=== PATIENT | male | born 1970 | race Caucasian/White ===

== ENCOUNTER → 2021-07-21 07:59 | Day surgery (SDC) | payer BC, SELFPAY ==
[2021-07-16 12:33] VITALS: BMI 28.5
--- NOTE | 2021-07-21 08:20 | ANES.PREANE2 ---
Pre-Anesthetic Assessment Pre-Anesthetic Assessment: Height/Weight: Height 1.8 m Weight 92.986 kg Preop Diagnosis: Screening colonoscopy Proposed Procedure: Operation Date: 07/21/21 09:15 Proposed Procedures p Colonoscopy 03267 Z12.11(Not Applicable) - Fab Baires MD Was Beta Avery taken within 24 hours: N/A Was Clonidine taken within 24 hours: N/A Social: Social History: Alcohol and Tobacco Comment: Jennyfer use Exam: Pre-Anes Outpt Exam: alert, oriented x 3 and regular rate & rhythm Airway: Submandibular: WNL Cervical ROM: WNL MP: 2 Dentition: False History/ROS: No significant history except as noted Anesthetic Plan: ASA status: 2 Anesthesia: MAC Risk of > 500 ml blood loss (7ml/kg in children): No Data Anesthesia Cardiac Studies: No Data to Display
--- NOTE | 2021-07-21 08:33 | PC.NURSE ---
pt states he did not take a prep . states he never got one and a nurse told him that he didn't need to unless he was constipated. dr. hill notified. pt to be rescheduled.
--- NOTE | 2021-07-21 15:26 | ANE.PACU2 ---
Inpatient post-anesthesia follow up: Airway intact: Yes Vital signs: Temperature Pulse Rate Respiratory Rate Blood Pressure Pulse Oximetry Oxygen Delivery Me thod Oxygen Flow Rate Fraction of Inspir ed Oxygen Hydration adequate: Yes Nausea and vomiting: No Pain level: 1 Mental status: Baseline
== END ==
PROVIDERS: PCP Family Medicine; Visit Provider Surgery
PROC: 0DJD8ZZ Inspection of Lower Intestinal Tract, Via Natural or Artificial Opening Endoscopic (ICD-10-PCS; CPT 45378; principal; 2021-07-21 09:15)
DX: Z12.11 Encounter for screening for malignant neoplasm of colon (principal); Z53.9 Procedure and treatment not carried out, unspecified reason

== ENCOUNTER 2021-12-23 08:19 | Emergency (ER) | payer BC, SELFPAY ==
[2021-12-23 08:27] VITALS: BP 174/114; PULSE 76; RESP 97; TEMP 36.2; O2SAT 96; BMI 29.9
--- NOTE | 2021-12-23 08:41 | CT_ITS ---
WS: [id number] CT HEAD NONCONTRAST HISTORY: R arm weakness/numbness TECHNIQUE: Contiguous axial imaging performed through the brain in 2.5 mm imaging. Bone and soft tiss ue windows. Sagittal and coronal reformats reviewed. All CT scans at [facility] use at least one of these dose optimization techniques: automated exposure control; mA and/or kV adjustment per pa tient size (includes targeted exams where dose is matched to clinical indication); or iterative recon struction. DLP: 987.08 mGy.cm COMPARISON: None available. No acute intracranial hemorrhage, midline shift or mass effect. No atrophy or prior infarcts or herniation. Ventricles: Normal size with no hydrocephalus. Paranasal sinuses: Near complete opacification of the LEFT sphenoid sinus. Otherwise sinuses are basilia r. Mastoid air cells: Well pneumatized. Calvarium and scalp: Skull is intact with no soft tissue edema or swelling. CT/CT head wo con* [id number] IMPRESSION: 1. No acute intracranial hemorrhage or edema. 2. LEFT sphenoid sinus disease.
--- NOTE | 2021-12-23 08:41 | ECG_ITS ---
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 Measurements Intervals [place] Rate: 65 P: 3 ND: 179 QRS: -15 QRSD: 102 T: 12 QT: 399 QTc: 418 Interpretive Statements SINUS RHYTHM Compared to ECG 02/21/2016 17:33:29 No significant changes Electronically Signed On 12-24-2021 5:59:58 [employer] by Anuja Nolasco M.D. [email or web address]
[2021-12-23 09:00] LABS: Basophils # 0.1 10^3/uL (0.0-0.1); Basophils % 0.7 %; Eosinophils # 0.1 10^3/uL (0.0-0.8); Eosinophils % 1.7 %; Hematocrit 46.6 % (42.0-52.0); Hemoglobin 15.9 g/dL (11.7-16.6); Lymphocytes # 1.4 10^3/uL (0.8-4.8); Lymphocytes % 19.5 %; Mean Corpuscular HGB Conc 34.1 g/dL (30.0-36.0); Mean Corpuscular Hemoglobin 31.9 pg (28.0-34.0); Mean Corpuscular Volume 93.4 fl (80-94); Mean Platelet Volume 10.4 fL (7.4-10.4); Monocytes # 0.8 10^3/uL (0.2-0.9); Monocytes % 11.3 %; Neutrophils # 4.71 10^3/uL (1.8-7.7); Neutrophils % 66.4 %; Nucleated Red Blood Cells % 0 %; Platelet Count 258 10^3/cmm (130-400); Red Blood Count 4.99 10^6/uL (4.1-5.3); Red Cell Distribution Width 12.3 % (12.1-15.1); White Blood Count 7.1 10^3/uL (4.0-10.0)
--- NOTE | 2021-12-23 09:12 | W.ED.ANXIETY ---
HPI - Anxiety General: Chief Complaint: Anxiety Stated Complaint: Pressure R side of head R arm feel numb Time Seen by Provider: 12/23/21 08:29 Source: patient Mode of arrival: ambulatory Limitations: no limitations History of Present Illness: 51-year-old male presents emergency room with complaints right-sided frontal headache discomfort in his right arm is not numb weak sensation. He also has noticed his blood pressures been high. He has been having some relationship issues with his they are currently and may be heading towards divorce. He admits to having been drinking heavily for the last 2 years nearly a bottle of wine per night. Last 2 days he has not been drinking any has had onset of the symptoms including increasing anxiety since stopping the drinking. In addition to that he is stopped smoking tobacco and marijuana. MD complaint: anxiety Onset (ago): day(s) (2) Symptoms: extremity numbness/tingling and other (Right-sided headache) Severity: mild Quality: constant Place: home Provoking factors: emotional stress and other (Sudden abstinence from alcohol, nicotine, marijuana) Relieving factors: nothing Exacerbating factors: other (Alcohol nicotine marijuana abstinence) Associated symptoms: Reports anorexia, headache(s), malaise and weakness; Deny chest pain, chills, confusion, diaphoresis, fever(s), nausea, palpitations, short of breath, syncope or vomiting Review of Systems Const: Reports: malaise; Denies: fever(s), chills or diaphoresis ENMT: Denies: throat pain, ear or mastoid pain, nasal discharge or nasal congestion Card: Denies: chest pain, palpitations or syncope Resp: Denies: dyspnea, productive cough or non-productive cough GI: Denies: nausea or vomiting : Denies: flank pain, dysuria, urinary frequency or urinary urgency Skin/Breast: Denies: rash or pruritus Neuro: Reports: headache(s); Denies: confusion Psych: Reports: anxiety, depression, sleeping less, hopelessness, loss of interest and difficulty concentrating; Denies: visual hallucinations, auditory hallucinations, tactile hallucinations, suicidal ideation or homicidal ideation [facility] ED PFSH: Medical History Alcohol abuse Anxiety Depression Surgical History No significant past surgical history Social History Smoking and tobacco status: current every day smoker cigarettes Packs smoked per day: 1 Years cigarettes smoked: 30 Alcohol intake: current Alcohol intake frequency: 3 or more drinks per day Alcohol type: wine Physical Exam Const: COMMON NORMALS: no acute distress GENERAL APPEARANCE: cooperative and comfortable ORIENTATION/CONSCIOUSNESS: Yes awake, Yes oriented to person, Yes oriented to place and Yes oriented to time HENMT: COMMON NORMALS: normocephalic, atraumatic and hearing grossly normal bilaterally HEAD & SCALP: normocephalic and atraumatic Neck/C-Spine: COMMON NORMALS: no JVD Resp: COMMON NORMALS: normal respiratory effort, No retractions, No use of accessory muscles and clear to auscultation bilaterally AUSCULTATION: clear to auscultation bilaterally Cardio: COMMON NORMALS: no JVD, regular rate, regular rhythm and No murmurs present (Cardio) RATE: regular rate RHYTHM: regular rhythm GI: COMMON NORMALS: Soft to palpation and No hepatosplenomegaly present AUSCULTATION: Yes normoactive bowel sounds PALPATION: Yes Soft to palpation, No Tenderness to palpation present (GI), No Guarding due to palpation present (GI) and Yes No hepatosplenomegaly present Extremity: COMMON NORMALS: normal to inspection, capillary refill normal, no clubbing, cyanosis or edema, no calf tenderness and no pedal edema Neuro: SENSORIUM/ORIENTATION: Yes oriented to person, Yes oriented to place and Yes oriented to time Skin: COMMON NORMALS: no rashes or lesions noted GENERAL SKIN EXAM: no rashes or lesions noted Course Vital Signs: Vital signs: Vital Signs Temperature 97.1 F L 12/23/21 08:27 Pulse Rate 72 12/23/21 09:41 Respiratory Rate 18 12/23/21 09:41 Blood Pressure 163/101 12/23/21 09:41 Pulse Oximetry 93 12/23/21 09:41 MDM - Anxiety Medical Decision Making Acute anxiety reaction in addition added complicated by alcohol abuse. Discussed with the patient. Will encourage him to follow-up with [facility] and/or alcoholics anonymous or turning leaf. Given Ativan to use as needed. Medical Records I reviewed the patient's medical records. Lab Data I reviewed the patient's lab results. : 12/23/21 08:40 12/23/21 08:[address] 12/23/21 08:41 IMPRESSION: 1. No acute intracranial hemorrhage or edema. 2. LEFT sphenoid sinus disease. Laboratory Results WBC 7.1 10^3/uL (4.0-10.0) 12/23/21 08:40 RBC 4.99 10^6/uL (4.1-5.3) 12/23/21 08:40 Hgb 15.9 g/dL (11.7-16.6) 12/23/21 08:40 Hct 46.6 % (42.0-52.0) 12/23/21 08:40 MCV 93.4 fl (80-94) 12/23/21 08:40 MCH 31.9 pg (28.0-34.0) 12/23/21 08:40 MCHC 34.1 g/dL (30.0-36.0) 12/23/21 08:40 RDW 12.3 % (12.1-15.1) 12/23/21 08:40 Plt Count 258 10^3/cmm (130-400) 12/23/21 08:40 MPV 10.4 fL (7.4-10.4) 12/23/21 08:40 Neut % (Auto) 66.4 % 12/23/21 08:40 Lymph % (Auto) 19.5 % 12/23/21 08:40 Louisa % (Auto) 11.3 % 12/23/21 08:40 Eos % (Auto) 1.7 % 12/23/21 08:40 Baso % (Auto) 0.7 % 12/23/21 08:40 Neut # (Auto) 4.71 10^3/uL (1.8-7.7) 12/23/21 08:40 Lymph # (Auto) 1.4 10^3/uL (0.8-4.8) 12/23/21 08:40 Louisa # (Auto) 0.8 10^3/uL (0.2-0.9) 12/23/21 08:40 Eos # (Auto) 0.1 10^3/uL (0.0-0.8) 12/23/21 08:40 Baso # (Auto) 0.1 10^3/uL (0.0-0.1) 12/23/21 08:40 Nucleated RBC % (auto) 0 % 12/23/21 08:40 Nucleated RBCs # 0.0 /100WBC 12/23/21 08:40 Sodium 134 mmol/L (136-145) L 12/23/21 08:40 Potassium 4.6 mmol/L (3.5-5.1) 12/23/21 08:40 Chloride 99 mmol/L (98-107) 12/23/21 08:40 Carbon Dioxide 24 mmol/L (22-29) 12/23/21 08:40 Anion Gap 15.6 (5-19) 12/23/21 08:40 BUN 12 mg/dL (6-20) 12/23/21 08:40 Creatinine 0.7 mg/dL (0.7-1.2) 12/23/21 08:40 GFR Calculation 118.4 mL/min (90-130) 12/23/21 08:40 Glucose 101 mg/dL (65-115) 12/23/21 08:40 Calculated Osmolality 278 mOsm/kg (285-295) L 12/23/21 08:40 Calcium 10.1 mg/dL (8.5-10.5) 12/23/21 08:40 Total Bilirubin 0.4 mg/dL (0.15-1.2) 12/23/21 08:40 AST 17 U/L (0-40) 12/23/21 08:40 ALT 19 U/L (0-41) 12/23/21 08:40 Alkaline Phosphatase 73 IU/L (40-130) 12/23/21 08:40 Total Protein 7.2 g/dL (6.6-8.7) 12/23/21 08:40 Albumin 5.0 g/dL (3.5-5.2) 12/23/21 08:40 Globulin 2.2 g/dL (1.3-4.6) 12/23/21 08:40 Discharge Plan Discharge Patient Disposition: Home Clinical Impression: Anxiety Condition: Stable Prescriptions: New Ativan 2 mg tablet 2 mg PO Q6H PRN (Reason: anxiety) Qty: 14 0RF No Action ibuprofen 200 mg Tablet 400 mg PO Q6H PRN (Reason: Pain) 0RF melatonin 5 mg Tablet 5 - 10 mg PO BEDTIME PRN (Reason: Sleep) 0RF Discharge Orders: Discharge ED (Routine); Ordered 12/23/21 Ordered By: Satinder Abraham Referrals: Reese Lowe MD [Primary Care Provider] - Discharge Diet: Usual diet Discharge Activity: Increase activity as tolerated Patient Instructions: Abuse of Alcohol (ED), Anxiety (ED), Opioid Safety Activity Restrictions/Additional Instructions: Recommend abstinence from alcohol. Suggest contacting facilities such as [facility] ([phone]) Coding Level of Care Code ED Proof Reader for Chg Fwd Exam Comprehensive NIH stroke score NIHSS Level Of Consciousness - 1a: 0 Level Of Consciousness Questions - 1b: Both Correct Level Of Consciousness Commands - 1c: Both Correct Best Gaze - 2: Normal Visual Ortiz - 3: No Visual Loss Facial Palsy - 4: Normal Motor Arm Right - 5: No Drift Motor Arm Left - 5: No Drift Motor Leg Right - 6: No Drift Motor Leg Left - 6: No Drift Limb Ataxia - 7: Absent Sensory - 8: Normal Best Language - 9: No Aphasia Dysarthia - 10: Normal Extinction And Inattention - 11: 0 Score Total Score: 0
[2021-12-23 09:23] LABS: Alanine Aminotransferase 19 U/L (0-41); Alkaline Phosphatase 73 IU/L (40-130); Anion Gap 15.6 (5-19); Aspartate Amino Transferase 17 U/L (0-40); Blood Urea Nitrogen 12 mg/dL (6-20); Calcium 10.1 mg/dL (8.5-10.5); Carbon Dioxide 24 mmol/L (22-29); Chloride 99 mmol/L (98-107); Globulin 2.2 g/dL (1.3-4.6); Glomerular Filtration Rate 118.4 mL/min (90-130); Glucose 101 mg/dL (65-115); Osmolality Calculated 278 mOsm/kg (285-295); Potassium 4.6 mmol/L (3.5-5.1); Sodium 134 mmol/L (136-145); Total Bilirubin 0.4 mg/dL (0.15-1.2); Total Protein 7.2 g/dL (6.6-8.7)
[2021-12-23] MEDS: ketorolac 30 mg/mL INJ IVP (09:33)
[2021-12-23] MEDS: LORazepam 2 mg/mL INJ 1 mL IVP (09:33)
[2021-12-23] MEDS: amlodipine 10 mg Tablet PO (09:33)
[2021-12-23] MEDS: enalaprilat 1.25 mg/mL Inj IVP (09:33)
[2021-12-23 09:41] VITALS: BP 163/101; PULSE 72; RESP 18; O2SAT 93
--- NOTE | 2021-12-23 10:03 | PC.PHAR ---
PT STATES HE TAKES NO RX MEDICATIONS
== END 2021-12-23 11:16 | disposition home or self-care (01) ==
PROVIDERS: Emergency Provider Family Medicine; PCP Family Medicine
DX: F41.9 Anxiety disorder, unspecified (principal); F17.210 Nicotine dependence, cigarettes, uncomplicated
CPT/HCPCS: 70450; 80053; 85025; 93005; 96374; 96375; 99284; J1885; J2060; J3490

== ENCOUNTER 2022-01-02 09:57 | Emergency (ER) | payer BC, SELFPAY ==
[2022-01-02 10:13] VITALS: BP 168/116; PULSE 90; RESP 16; TEMP 36.4; O2SAT 96; BMI 29.9
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
[2022-01-02 10:54] VITALS: BP 154/96; PULSE 88; RESP 16; TEMP 36.8; O2SAT 99
[2022-01-02 10:57] VITALS: BP 164/99; PULSE 66; RESP 18; TEMP 36.8; O2SAT 99
== END 2022-01-02 11:01 | disposition home or self-care (01) ==
PROVIDERS: Emergency Provider Physician Assistant; PCP Family Medicine
DX: F41.9 Anxiety disorder, unspecified (principal); Z79.82 Long term (current) use of aspirin; F17.210 Nicotine dependence, cigarettes, uncomplicated
CPT/HCPCS: 99283

== ENCOUNTER 2023-05-06 07:00 | Emergency (ER) | payer MEDICAID, SELFPAY ==
[2023-05-06 07:11] VITALS: BP 138/100; PULSE 77; RESP 15; TEMP 36.7; O2SAT 97
--- NOTE | 2023-05-06 07:19 | ED_ITS ---
HPI - Skin/Abscess/Foreign Bdy General: Chief complaint: Skin/Abscess/Foreign Body Stated complaint: due possible spider bites Time Seen by Provider: 05/06/23 07:04 History of Present Illness: Mr. Bailey is a 52-year-old gentleman without significant past medical history presented the emergency department for skin lesions with possible spider bites. He notes walking through a spiderweb yesterday however initially not noticing anything. He subsequently developed a few hours later number of itching bites on his face and neck as well as head. He thought it was a spider bite and has had associated fatigue, myalgias, chills, fevers. Intensity symptoms is moderate. Course has persisted. Has tried calamine lotion with mild relief. No other specific changes in health, exacerbating, or alleviating factors identified. Onset (ago): hour(s) Location: head and neck Severity: moderate Quality: pruritic Associated symptoms: Reports chills, fever(s) and other Review of Systems General: Reports: 10 or more systems reviewed and unremarkable except in HPI and below Const: Reports: fever(s) and chills PFSH ED PFSH: Medical History Alcohol abuse Anxiety Depression Surgical History No significant past surgical history Social History Smoking and tobacco status: current every day smoker cigarettes Packs smoked per day: 1 Years cigarettes smoked: 30 Alcohol intake: current Alcohol intake frequency: 3 or more drinks per day Alcohol type: wine Substance/Drug Use: current Substance/Drug use frequency: daily Physical Exam Const: COMMON NORMALS: alert GENERAL APPEARANCE: cooperative and well developed HENMT: COMMON NORMALS: normocephalic and atraumatic HEAD & SCALP: normocephalic and atraumatic Eye: COMMON NORMALS: conjunctivae normal CONJUNCTIVA: Yes conjunctivae normal SCLERA: sclerae normal Neck/C-Spine: COMMON NORMALS: supple GENERAL: Yes trachea midline Resp: COMMON NORMALS: normal respiratory effort EFFORT & INSPECTION: Yes able to speak in complete sentences Cardio: COMMON NORMALS: regular rate and regular rhythm RATE: regular rate RHYTHM: regular rhythm GI: COMMON NORMALS: Soft to palpation PALPATION: Yes Soft to palpation and No Tenderness to palpation present (GI) Extremity: GENERAL: Yes normal exam except as noted and No edema Neuro: COMMON NORMALS: moves all extremities SENSORIUM/ORIENTATION: Yes alert and No Orientation impaired Skin: NARRATIVE SKIN EXAM: Scattered maculopapular rash along the face and hairline. No evidence of facial edema around the oropharynx or mouth. There is a more raised wheel-like lesion on the right neck. Course Vital Signs: Vital signs: Vital Signs Temperature 98.1 F 05/06/23 07:11 Pulse Rate 70 05/06/23 08:52 Respiratory Rate 15 05/06/23 07:11 Blood Pressure 153/109 05/06/23 08:52 Pulse Oximetry 99 05/06/23 08:52 Oxygen Delivery Me thod Room Air 05/06/23 07:11 MDM - Skin/Abscess/Foreign Bdy Medicial Decision Making 52-year-old gentleman presented to the emergency department with generalized illness and concern for spider bites. Patient is markedly although nontoxic in appearance. Lesions non vesicular and are not consistent with spider bite and may be more likely small insect bite. No evidence of superimposed infection. No significant hematologic abnormality. Metabolic panel with minimal dehydration. COVID-positive which likely better explain symptoms. No indication for imaging. Patient improved with treatment. The results of ED evaluation were discussed with the patient including prescriptions and/or symptomatic cares (if applicable) including appropriate and responsible use, followup plan, and return precautions. The patient verbalized understanding and felt safe for discharge. Medical Records I reviewed the patient's medical records. Lab Data I reviewed the patient's lab results. 05/06/23 07:30 05/06/23 07:30 Laboratory Results WBC 6.0 10^3/uL (4.0-10.0) 05/06/23 07:30 RBC 4.74 10^6/uL (4.1-5.3) 05/06/23 07:30 Hgb 14.8 g/dL (11.7-16.6) 05/06/23 07:30 Hct 43.8 % (42.0-52.0) 05/06/23 07:30 MCV 92.4 fl (80-94) 05/06/23 07:30 MCH 31.2 pg (28.0-34.0) 05/06/23 07:30 MCHC 33.8 g/dL (30.0-36.0) 05/06/23 07:30 RDW 12.1 % (12.1-15.1) 05/06/23 07:30 Plt Count 220 10^3/cmm (130-400) 05/06/23 07:30 MPV 10.7 fL (7.4-10.4) H 05/06/23 07:30 Neut % (Auto) 73.9 % 05/06/23 07:30 Lymph % (Auto) 11.0 % 05/06/23 07:30 [place] % (Auto) 12.8 % 05/06/23 07:30 Eos % (Auto) 1.2 % 05/06/23 07:30 Baso % (Auto) 0.8 % 05/06/23 07:30 Neut # (Auto) 4.43 10^3/uL (1.8-7.7) 05/06/23 07:30 Lymph # (Auto) 0.7 10^3/uL (0.8-4.8) L 05/06/23 07:30 [place] # (Auto) 0.8 10^3/uL (0.2-0.9) 05/06/23 07:30 Eos # (Auto) 0.1 10^3/uL (0.0-0.8) 05/06/23 07:30 Baso # (Auto) 0.1 10^3/uL (0.0-0.1) 05/06/23 07:30 Nucleated RBC % (auto) 0 % 05/06/23 07:30 Nucleated RBCs # 0.0 /100WBC 05/06/23 07:30 Sodium 134 mmol/L (136-145) L 05/06/23 07:30 Potassium 4.1 mmol/L (3.5-5.1) 05/06/23 07:30 Chloride 100 mmol/L (98-107) 05/06/23 07:30 Carbon Dioxide 25 mmol/L (22-29) 05/06/23 07:30 Anion Gap 13.1 (5-19) 05/06/23 07:30 BUN 9 mg/dL (6-20) 05/06/23 07:30 Creatinine 0.8 mg/dL (0.7-1.2) 05/06/23 07:30 GFR Calculation 101.1 mL/min (90-130) 05/06/23 07:30 Glucose 103 mg/dL (65-115) 05/06/23 07:30 Calculated Osmolality 277 mOsm/kg (285-295) L 05/06/23 07:30 Calcium 9.4 mg/dL (8.5-10.5) 05/06/23 07:30 Total Bilirubin 0.3 mg/dL (0.15-1.2) 05/06/23 07:30 AST 21 U/L (0-40) 05/06/23 07:30 ALT 27 U/L (0-41) 05/06/23 07:30 Alkaline Phosphatase 59 U/L (40-130) 05/06/23 07:30 Total Protein 7.1 g/dL (6.6-8.7) 05/06/23 07:30 Albumin 4.4 g/dL (3.5-5.2) 05/06/23 07:30 Globulin 2.7 g/dL (1.3-4.6) 05/06/23 07:30 SARS-CoV-2 Ag (Rapid) positive (Negative) 05/06/23 07:43 Discharge Plan Discharge Patient Disposition: Home Clinical Impression: COVID-19 Condition: Stable Prescriptions: New Paxlovid (EUA) 300 mg (150 mg x 2)-100 mg tablets,dose pack See Rx Instructions .ROUTE .COMPLEX Qty: 30 0RF Rx Instructions: orally per package directions ondansetron 4 mg tablet,disintegrating 4 mg PO Q8H PRN (Reason: nausea and vomiting) Qty: 15 0RF No Action ibuprofen 200 mg Tablet 400 mg PO Q6H PRN (Reason: Pain) melatonin 5 mg Tablet 5 - 10 mg PO BEDTIME PRN (Reason: Sleep) Ativan 2 mg tablet 2 mg PO Q8H PRN (Reason: anxiety) Qty: 20 0RF aspirin 81 mg Tablet,Chewable 81 mg PO DAILY Discharge Orders: Discharge ED (Routine); Ordered 05/06/23 Ordered By: Tushar Paniagua Referrals: Reese Lowe MD [Primary Care Provider] - Discharge Diet: Usual diet Discharge Activity: Increase activity as tolerated Patient Instructions: COVID-19 (Coronavirus Disease 2019) (ED) Activity Restrictions/Additional Instructions: Thank you for visiting the emergency department. You were seen and evaluated for generalized illness and concern over skin lesions. The most likely cause of your symptoms is COVID-19. The treatment is largely supportive, I will provide antinausea medication. I will also prescribe Paxlovid. Ensure that you are staying hydrated. You may use yypd-fez-agyryve medications such as acetaminophen and ibuprofen for pain however please do not exceed the daily recommended dosage as listed on the packaging and please keep in mind that many namebrand medications contain the same active ingredients. Please avoid these medications if previously instructed to do so by another physician due to other underlying medical condition. Return for significantly worsening symptoms, oxygen saturation of 90% or less, or anything else that you are concerned about and feel needs emergency department evaluation. Coding Level of Care Code ED General Administrator for Zane Bell
[2023-05-06] MEDS: sodium chloride 0.9% 1,000 ML 999 ML IV (07:33)
[2023-05-06] MEDS: dexamethasone 10 mg/mL INJ 6 MG IVP (07:34)
[2023-05-06] MEDS: famotidine 20 mg/2 mL INJ 40 MG IVP (07:34)
[2023-05-06] MEDS: ketorolac 30 mg/mL INJ 15 MG IVP (07:34)
[2023-05-06 07:49] VITALS: BP 138/94; PULSE 69; O2SAT 99
[2023-05-06 07:51] LABS: Basophils # 0.1 10^3/uL (0.0-0.1); Basophils % 0.8 %; Eosinophils # 0.1 10^3/uL (0.0-0.8); Eosinophils % 1.2 %; Hematocrit 43.8 % (42.0-52.0); Hemoglobin 14.8 g/dL (11.7-16.6); Lymphocytes # 0.7 10^3/uL (0.8-4.8); Mean Corpuscular HGB Conc 33.8 g/dL (30.0-36.0); Mean Corpuscular Hemoglobin 31.2 pg (28.0-34.0); Mean Corpuscular Volume 92.4 fl (80-94); Mean Platelet Volume 10.7 fL (7.4-10.4); Monocytes # 0.8 10^3/uL (0.2-0.9); Monocytes % 12.8 %; Neutrophils # 4.43 10^3/uL (1.8-7.7); Neutrophils % 73.9 %; Nucleated Red Blood Cells % 0 %; Platelet Count 220 10^3/cmm (130-400); Red Blood Count 4.74 10^6/uL (4.1-5.3); Red Cell Distribution Width 12.1 % (12.1-15.1)
[2023-05-06 08:17] LABS: Alanine Aminotransferase 27 U/L (0-41); Albumin Level 4.4 g/dL (3.5-5.2); Alkaline Phosphatase 59 U/L (40-130); Anion Gap 13.1 (5-19); Aspartate Amino Transferase 21 U/L (0-40); Blood Urea Nitrogen 9 mg/dL (6-20); Calcium 9.4 mg/dL (8.5-10.5); Carbon Dioxide 25 mmol/L (22-29); Chloride 100 mmol/L (98-107); Globulin 2.7 g/dL (1.3-4.6); Glomerular Filtration Rate 101.1 mL/min (90-130); Glucose 103 mg/dL (65-115); Osmolality Calculated 277 mOsm/kg (285-295); Potassium 4.1 mmol/L (3.5-5.1); Sodium 134 mmol/L (136-145); Total Bilirubin 0.3 mg/dL (0.15-1.2); Total Protein 7.1 g/dL (6.6-8.7)
[2023-05-06 08:52] VITALS: BP 153/109; PULSE 70; O2SAT 99
[2023-05-06 10:31] LABS: SARS Covid-2 Antigen positive (Negative)
== END 2023-05-06 08:53 | disposition home or self-care (01) ==
PROVIDERS: Emergency Provider Emergency Medicine; PCP Family Medicine
DX: U07.1 COVID-19 (principal)
CPT/HCPCS: 80053; 85025; 87426; 96374; 96375; 99284; J1100; J1885; J3490; J7030

== ENCOUNTER 2025-09-12 14:46 | Emergency (ER) | payer SELFPAY ==
[2025-09-12 14:49] VITALS: BP 150/107; PULSE 93; RESP 20; TEMP 36.7; O2SAT 100
--- OUTSIDE RECORDS SUMMARY | 2025-09-12 14:53 | XMS_ITS | Continuity of Care Document ---
Author Organization [facility] Andie, Mario, [facility] ([facility]) Address [address] [place] [address] Care Team Providers Care Alumni Coordinator Name Role Phone JUAN DANIEL WATSON Primary Care Provider NANNETTE RAMEY Primary Care Provider Assessment No assessment recorded. Plan of Treatment Reminders Order Date Submit Date Provider Last Modified By Organization Details Last Modified Time Details Appointments None recorded. Lab semen analysis (post vasectomy) [address] [facility] ([facility]), [address] [place], [address], 13:02:57 Referral None recorded. Procedures None recorded. Surgeries None recorded. Imaging None recorded. Medication Orders None recorded. Patient TargetsNo targets recorded. Patient InstructionsNo instructions recorded. Reason for Referral None Reported. Results Created Date Observation Date Name Description Value Unit Range Abnormal Flag Note LastModifiedBy Organization Detail LastModifiedTime 08/20/20 25 08/20/2025 semen rosemary sis (post vasec franchesca) Motile Sperm Not Seen Not Available [facility] ([facility]) [address] [place], [address], 08/20/2025 12:59:11 Result Notes None recorded. 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 Procedures Surgical History Date Name Laterality Status Provider Name and Address Organization Details Recorded Time jr vasectomy completed Andrei Larios MD [address] [place] [address], [id number], [facility], RenettaLMarcelino 05/31/2025 12:09:44 Imaging Results None recorded. Procedure Notes None recorded. Medical Equipment None Reported. Allergies No known drug allergies Medications Name Sig Start Date Stop Date Status Note LastModified by Organization Details LastModified Time prednisone 10 mg tablet TAKE 2 TABLETS BY MOUTH DAILY FOR 4 DAYS AND 1 TABLET DAILY FOR 4 DAYS 11/19 completed Not Available Not Available Not Available azithromyci n 250 mg tablet TAKE 2 TABLETS (500 MG) BY ORAL ROUTE ONCE DAILY FOR 1 DAY THEN 1 TABLET (250 MG) BY ORAL ROUTE ONCE DAILY FOR 4 DAYS 11/10 completed Not Available Not Available Not Available triamcinolo ne acetonide 0.1 % topical cream APPLY THIN LAYER TOPICALLY TO THE AFFECTED AREA TWICE DAILY active Not Available Not Available No t Available oxycodone-a cetaminophe n 5 mg-325 mg tablet TAKE 1 TABLET BY MOUTH ONCE NEEDED FOR PAIN active Not Available Not Available No t Available terbinafine HCl 250 mg tablet Take 1 tablet every day by oral route. 03/13 completed Not Available Not Available Not Available diazepam 10 mg tablet TAKE 1 TABLET BY MOUTH IN ONE DOSE NEEDED active Not Available Not Available No t Available Vitals None Recorded Social History Question Answer Notes LastModified by Organizat ion Details LastModified Time Tobacco Smoking Status Current Every Day Smoker Anyi Palmer alfredo [facility], [facility]CK[facility] 02/26/2024 10:32:41 Are You Blind Or Do You Have Difficulty Seeing? No Information not available 11/19/2024 What Is Your Level Of Caffeine Consumption? Heavy Information not available 11/19/2024 Are You Deaf Or Do You Have Serious Difficulty Hearing? No Information not available 11/19/2024 What Type Of Diet Are You Following? REGULAR Information not available 11/19/2024 How Many Alcoholic Drinks Do You Consume Per Day On Average? 4 Information not available 11/19/2024 Which Illicit Or Recreational Drugs Have You Used? Marijuana Information not available 11/19/2024 What Was The Date Of Your Most Recent Tobacco Screening? 03/13/2025 [email or web address] Information not available 03/13/2025 What Is Your Relationship Status? Information not available 11/19/2024 Have You Used IV Drugs? No Information not available 11/19/2024 Do You Have Difficulty Walking Or Climbing Stairs? No Information not available 11/19/2024 Do You Have Any Dietary Restrictions? No Information not available 11/19/2024 Sex: Unknown Functional Status Question Answer Note LastModified by Organizat ion Details LastModified Time How many times per week do you consume alcohol? 5-7 times per week Information not available 11/19/2024 Do you use any illicit or recreational drugs? Yes Information not available 11/19/2024 What is your level of alcohol consumption? Heavy Information not available 11/19/2024 Are you currently employed? No Information not available 11/19/2024 Are you able to walk independently without assistance or assistive devices? YESWOREST Information not available 11/19/2024 Do you have difficulty doing errands alone? No Information not available 11/19/2024 Are you able to care for yourself independently? Yes Information not available 11/19/2024 Do you have difficulty dressing, bathing, grooming, or toileting? No Information not available 11/19/2024 Mental Status Question Answer Note LastModified by Organization D etails LastModified Time Do you have difficulty concentrating, remembering or making decisions? No Information no t available 11/19/2024 Family History Nothing Reported Notes:HTN: mother and father Medical History No medical history recorded. Immunizations Vaccine Type Date Status Note Provider Hansel meyer and Address Organization Details Recorded Time Tdap 2 completed Not Available [facility] 05/09/2025 16:14:58 COVID-19, mRNA, LNP-S, PF, 100 mcg/0.5mL dose or 50 mcg/0.25mL dose 1 completed Not Available [facility] 05/09/2025 16:14:58 COVID-19, mRNA, LNP-S, PF, 100 mcg/0.5mL dose or 50 mcg/0.25mL dose 1 completed Not Available [facility] 05/09/2025 16:14:58 COVID-19, mRNA, LNP-S, PF, 100 mcg/0.5mL dose or 50 mcg/0.25mL dose 1 completed Not Available [facility] 05/09/2025 16:14:58 COVID-19, mRNA, LNP-S, PF, 100 mcg/0.5mL dose or 50 mcg/0.25mL dose 2 completed Not Available [facility] 05/09/2025 16:14:58 COVID-19, mRNA, LNP-S, bivalent, PF, 50 mcg/0.5 mL or 25mcg/0.25 mL dose 2 completed Not Available [facility] 05/09/2025 16:14:58 Influenza, split virus, trivalent, preservative 2 completed Not Available [facility] 05/09/2025 16:14:58 COVID-19, mRNA, LNP-S, PF, 50 mcg/0.5 mL 4 completed Not Available [facility] 05/09/2025 16:14:58 Past Encounters Encounter ID Performer Location Encounter Start Date Encounter Closed Date Diagnosis/Indication Diagnosis SNOMED-CT Code Diagnosis ICD10 Code Diagnosis IMO Codes Diagnosis Note [id number] Andrei Larios MD [facility] ([facility]) [address] [place] [address] 08/20/2025 12:58:32 08/21/2025 11:12:37 History of vasectomy 127045950 Z98.52 [id number] Health Concerns Section Related Observation LastModified by Organization Detai ls LastModified Time None Recorded Concern Status LastModified by Organization Details LastModified Time None Recorded Payers Encounter Date Sequence Insurance Name Policy Number Policy Licona Covered Member ID Licona Member ID Guarantor Name 08/20/2025 1 *SELF PAY* Jeanne Bailey
--- OUTSIDE RECORDS SUMMARY | 2025-09-12 14:53 | XMS_ITS | Data Portability ---
Author Organization YOLI Ureña [facility] Address [address] [address] [place] [address] Care Team Providers Care Wood Barker Name Role Phone JUAN DANIEL WATSON Primary Care Provider [phone] NANNETTE GORMAN Primary Care Provider [phone] Assessment No assessment recorded. Plan of Treatment Reminders Order Date Submit Date Provider Last Modified By Organization Details Last Modified Time Details Appointments None recorded. Lab semen analysis (post vasectomy) 2024 025 [facility] ([facility]), [address] [place], [address], 13:02:57 lipid panel, blood 2024 025 [facility], [address] [facility] [address], [place], [address], 12:53:02 noninvasive colorectal cancer DNA + occult blood screening, QL, stool 2024 025 [facility], [address], [place], [address], 5 08:35:42 CMP, serum or plasma 2024 025 [facility], [address] [facility] [address], [place], [address], 5 12:52:59 CBC 2024 025 [facility], [address] [facility] [address], [place], [address], 12:43:42 Referral None recorded. Procedures vasectomy (PROC) 2024 025 [email or web address] 2 [facility], [address], [place], [address], 09:49:27 Surgeries vasectomy (SURG) 2024 025 [email or web address] Not available 13:32:29 Imaging None recorded. Medication Orders Valium 10 mg tablet 2024 [id number], [address], [place], [place], [id number], 10:01:19 Percocet 5 mg-325 mg tablet 2024 025 [facility]9570, [address], [place], [place], [id number], 10:01:20 triamcinolo ne acetonide 0.1 % topical cream 2024 025 [facility] #[facility]6592, [address], [place], [place], [id number], 10:53:08 terbinafine HCl 250 mg tablet 2024 025 [facility]25[facility], [address], [place], [place], [id number], 10:44:10 Patient TargetsNo targets recorded. Patient InstructionsNo instructions recorded. Reason for Referral None Reported. Results Created Date Observation Date Name Description Value Unit Range Abnormal Flag Note LastModifiedBy Organization Detail LastModifiedTime 11/10/1911/10/2024 rapid strep group A, throa t Strep negati ve Not Available [facility] ([facility]) [address] [place], [address], 11/10/2024 13:28:18 11/19/19 25 11/19/2024 CBC WBC 8.3 x10 4.5-10 .5 Not Available [facility] [address] [address], [place], [address], 11/19/2024 12:43:42 11/19/19 25 11/19/2024 CBC RBC 4.91 x10 4.30-5 .90 Not Available [facility] [address] [facility] [address], [place], [address], 11/19/2024 12:43:42 11/19/19 25 11/19/2024 CBC HGB 16.1 g/dL 13.5-1 8.0 Not Available [facility] [address] [address], [place], [address], 11/19/2024 12:43:42 11/19/19 25 11/19/2024 CBC HCT 44.6 % 35.0-6 0.0 Not Available [facility] [address] [facility] [address], [place], [address], 11/19/2024 12:43:42 11/19/19 25 11/19/2024 CBC MCV 90.9 fL 80.0-9 9.9 Not Available [facility] [address] [facility] [address], [place], [address], 11/19/2024 12:43:42 11/19/19 25 11/19/2024 CBC MCH 32.7 pg 27.0-3 2.0 high Not Available [facility] [address] [facility] [address], [place], [address], 11/19/2024 12:43:42 11/19/19 25 11/19/2024 CBC MCHC 36.1 g/dL 32.0-3 6.0 high Not Available [facility] [address] [facility], [place], [address], 11/19/2024 12:43:42 11/19/19 25 11/19/2024 CBC RDW 12.9 % 11.5-1 4.5 Not Available [facility] [address] [facility], [place], [address], 11/19/2024 12:43:42 11/19/19 25 11/19/2024 CBC plt 238.7 x10 150.0- 451.0 Not Available [facility] [address] [place] [facility], [place], [address], 11/19/2024 12:43:42 11/19/19 25 11/19/2024 CBC lymphocytes % 32.3 % 20.0-5 0.0 Not Available [facility] [address] [facility] [address], [place], [address], 11/19/2024 12:43:42 11/19/19 25 11/19/2024 CBC granulcytes % 56.8 % 30.0-7 0.0 Not Available [facility] [address] [facility] [address], [place], [address], 11/19/2024 12:43:42 11/19/1911/19/2024 CBC monocytes % 8.6 % 2.0-16 .0 Not Available [facility] [address] [place] [facility], [place], [address], 11/19/2024 12:43:42 11/19/19 25 11/19/2024 CBC granulcytes# 4.7 x10 Not Brittany ilable [facility] [address] [address], [place], [address], 11/19/2024 12:43:42 11/19/19 25 11/19/2024 CBC lymphocytes # 2.7 x10 Not Available [address] [address], [place], [address], 11/19/2024 12:43:42 11/19/19 25 11/19/2024 CBC monocytes # 0.7 x10 Not Avai lable [facility] [address] [address], [place], [address], 11/19/2024 12:43:42 11/19/19 25 11/19/2024 CMP (MALE ) glucose 109.0 mg/dL 60.0-9 9.0 high Not Available [address] [address], [place], [address], 11/19/2024 12:52:59 11/19/19 25 11/19/2024 CMP (MALE ) BUN (blood urea nitrogen) 15.0 mg/dL 10.0-2 6.0 Not Available [address] [address], [place], [address], 11/19/2024 12:52:59 11/19/19 25 11/19/2024 CMP (MALE ) creatinine (serum) 0.9 mg/dL 0.4-1. 5 Not Available [address] [address], [place], [address], 11/19/2024 12:52:59 11/19/19 25 11/19/2024 CMP (MALE ) BUN/creatini ne ratio 16.67 ratio Not Available [address] [address], [place], [address], 11/19/2024 12:52:59 11/19/19 25 11/19/2024 CMP (MALE ) eGFR calculated 93.1 Not Available [address] [facility], [place], [address], 11/19/2024 12:52:59 11/19/19 25 11/19/2024 CMP (MALE ) total protein 8.1 g/dL 6.0-8. 5 Not Available [facility] [address] [facility] [address], [place], [address], 11/19/2024 12:52:59 11/19/19 25 11/19/2024 CMP (MALE ) total bilirubin 0.5 mg/dL 0.2-1. 3 Not Available [facility] [address] [facility] [address], [place], [address], 11/19/2024 12:52:59 11/19/19 25 11/19/2024 CMP (MALE ) albumin 4.8 g/dL 3.5-5. 5 Not Available [facility] [address] [facility] [address], [place], [address], 11/19/2024 12:52:59 11/19/19 25 11/19/2024 CMP (MALE ) globulin 3.3 calc Not Available [facility] [address] [facility] [address], [place], [address], 11/19/2024 12:52:59 11/19/19 25 11/19/2024 CMP (MALE ) AST (SGOT) 35.0 U/L 0.0-46 .0 Not Available [facility] [address] [facility], [place], [address], 11/19/2024 12:52:59 11/19/19 25 11/19/2024 CMP (MALE ) altv (SGPT) 42.0 U/L 13.0-6 9.0 normal Not Available [facility] [address] [facility] [address], [place], [address], 11/19/2024 12:52:59 11/19/19 25 11/19/2024 CMP (MALE ) A/G ratio 1.5 ratio Not Available [facility] [address] [facility] [address], [place], [address], 11/19/2024 12:52:59 11/19/19 25 11/19/2024 CMP (MALE ) ALP phos 56.0 U/L 30.0-1 40.0 normal Not Available [facility] [address] [facility] [address], [place], [address], 11/19/2024 12:52:59 11/19/19 25 11/19/2024 CMP (MALE ) calcium 10.0 mg/dL 8.4-10 .5 Not Available [facility] [address] [address], [place], [address], 11/19/2024 12:52:59 11/19/19 25 11/19/2024 CMP (MALE ) sodium 139.0 mmol/ L 136.0- 145.0 Not Available [facility] [address] [address], [place], [address], 11/19/2024 12:52:59 11/19/19 25 11/19/2024 CMP (MALE ) potassium 5.0 mmol/ L 3.5-5. 1 Not Available [facility] [address] [address], [place], [address], 11/19/2024 12:52:59 11/19/19 25 11/19/2024 CMP (MALE ) chloride 103.0 mmol/ L 98.0-1 10.0 normal Not Available [facility] [address] [address], [place], [address], 11/19/2024 12:52:59 11/19/19 25 11/19/2024 CMP (MALE ) C02 29.0 mmol/ L 22.0-3 1.0 Not Available [facility] [address] [facility], [place], [address], 11/19/2024 12:52:59 11/19/19 25 11/19/2024 CMP (MALE ) anion gap 7.0 calc Not Available [facility] [address] [place] [facility], [place], [address], 11/19/2024 12:52:59 11/19/19 25 11/19/2024 CMP (MALE ) osmolality 288.5 calc Not Available [facility] [address] [place] [facility], [place], [address], 11/19/2024 12:52:59 11/19/19 25 11/19/2024 LIPID PROFI LE (MALE ) cholesterol 204.0 mg/dL 0.0-20 0.0 high Not Available [facility] [address] [place] [facility], [place], [address], 11/19/2024 12:53:02 11/19/19 25 11/19/2024 LIPID PROFI LE (MALE ) trig 209.0 mg/dL 0.0-15 0.0 high Not Available [facility] [address] [facility], [place], [address], 11/19/2024 12:53:02 11/19/19 25 11/19/2024 LIPID PROFI LE (MALE ) HDL - direct 45.0 mg/dL >40.0 Not Available [facility] [address] [place] [facility], [place], [address], 11/19/2024 12:53:02 11/19/19 25 11/19/2024 LIPID PROFI LE (MALE ) VLDL - direct 41.8 mg/dL Not Available [facility] [address] [facility], [place], [address], 11/19/2024 12:53:02 11/19/19 25 11/19/2024 LIPID PROFI SHANI (MALE ) LDL - direct 117.2 mg/dL 0.0-13 0.0 Not Available [facility] [address], [place], [address], 11/19/2024 12:53:02 01/30/20 25 01/29/2025 COLOG UARD cologuard result reportable NEGATI VE negati ve normal The Colog uard (TM) test was perfo rmed on this speci men. NEGAT MANOJ TEST RESUL T. A negat manoj Colog uard resul t indic ates a low likel ihood that a color ectal cance r (CRC) or advan el adeno ma (jack omato us polyp s with more advan el pre-m align ant featu res) is prese nt. The [facility] emergency department e that a perso n with a negat manoj Colog uard test has a color ectal cance r is less than 1 in 1500 (nega tive predi ctive value >99.9 %) or has an advan el adeno ma is less than 5.3% (nega tive predi ctive value 94.7% ). These data are based on a prosp ectiv e cross -sect ional study of 10,00 0 indiv idual s at [facility] risk for color ectal cance r who were scree xavier with both Colog uard and colon oscop y. (Jason Bess et al, N Engl J Med 2014; 370(1 4):12 86-12 97) The bladimir l value (refe rence range ) for this assay is negat manoj. COLOG UARD RE-SC REENI NG RECOM MENDA TION: Perio dic color ectal cance r scree bren is an impor tant part of preve ntive healt hcare for asymp tomat ic indiv idual s at [facility] risk for color ectal cance r. Follo wing a negat manoj Colog uard resul t, the Ameri can Cance r Socie ty and U.S. Multi -Soci ety Task Force scree bren guide lines recom mend a Colog uard re-sc araceli ng inter da of 3 years . Refer ences : Krzysztof can Cance r Socie ty Guide line for Color ectal Cance r Scree bren: https ://temitope w.can cer.o rg/ca ncer/ colon -rect al-ca ncer/ detec tion- diagn osis- stagi ng/ac s-rec ommen datio ns.ht ml.; Isak LEGER, Aj WHEATLEY, Caity CortezK, Color ectal Cance r Scree bren: Recom menda tions for Physi cians and Patie nts from the U.S. Multi -Soci ety Task Force on Color ectal Cance r Scree bren , Ania rayog y 2017; 112:1 016-1 030. TEST DESCR IPTIO N: [place] site algor ithmi c rosemary sis of stool DNA-b iomar kers with hemog lobin immun oassa y. Quant itati ve value s of indiv idual bioma rkers are not repor table and are not assoc iated with indiv idual bioma rker resul t refer ence range s. Colog uard is inten ded for color ectal cance r scree bren of adult s of eithe r sex, 45 years or older , who are at [facility] for color ectal cance r (CRC) . Colog uard has been appro lambert for use by the U.S. FDA. The perfo rmanc e of Colog uard was estab lishe d in a cross secti onal study of [facility] adult s aged 50-84 . Colog uard perfo rmanc e in patie nts ages 45 to 49 years was estim ated by sub-g roup rosemary sis of near- age group s. Colon oscop ies perfo rmed for a posit manoj resul t may find as the most clini natalya signi fican t lesio n: color ectal cance r [4.0% ], advan el adeno ma (incl uding sessi le saul judy polyp s great er than or equal to 1cm diame ter) [20%] or non- advan el adeno ma [31%] ; or no color ectal neopl shabana [45%] . These estim ates are deriv ed from a prosp ectiv e cross -sect ional scree bren study of ,00 0 indiv idual s at [facility] risk for color ectal cance r who were scree xavier with both Colog uard and colon oscop y. (Jason Bess et al, N Engl J Med 2014; 370(1 4):12 86-12 97.) Colog uard may produ ce a false negat manoj or false posit manoj resul t (no color ectal cance r or preca ncero us polyp prese nt at colon oscop y follo w up). A negat manoj Colog uard test resul t does not guara ntee the absen ce of CRC or advan el adeno ma (pre- cance r). The curre nt Colog uard scree bren inter da is every 3 years . (Amer ican Cance r Socie ty and U.S. Multi -Soci ety Task Force ). Colog uard perfo rmanc e data in a 0 patie nt pivot al study using colon oscop y as the refer ence metho d can be acces sed at the follo wing locat ion: www.e xactl abs.c om/re anjali . Addit ional descr iptio n of the Colog uard test proce ss, warni ngs and preca ution s can be found at www.c hillary bunnd.c om. Not Available [facility] [address], [place], [address], 02/06/2025 00:59:49 08/20/20 25 08/20/2025 semen rosemary sis (post vasec franchesca) Motile Sperm Not Seen Not Available [facility] ([facility]) [address] [place], [address], 08/20/2025 12:59:11 Result Notes None recorded. Problems Name Problem SNOMED Code Status Onset Date Resolution Date Notes Provider Name and Address Organization Details Recorded Time Onychomycos is of toenails 304388661 Completed 202404/14/2025 KATIE Trivedi, [facility] 09:19:29 Problem Notes None recorded. Procedures Surgical History Date Name Laterality Status Provider Name and Address Organization Details Recorded Time jr vasectomy completed Andrei Larios MD [address] [place] [address], [phone], [facility] 05/31/2025 12:09:44 Imaging Results None recorded. Procedure [...] Available Not Available No t Available Vitals Date Recorded Body height Body mass index (BMI) Body weight Body temperature Oxygen saturation Heart rate Systolic And Diastolic Provider Name and Address Organization Details Last Updated DateTime 5 180.34 cm 28.5 kg/m2 40321.5 9 g 97.8 [degF] 95 % 80 /min 150/92 mm[Hg] LIZZIE CASTILLO [facility] 5 11:25:42 Date Recorded Body height Body mass index (BMI) Body weight Oxygen saturation Heart rate Respiratory rate Body temperature Systolic And Diastolic Provider Name and Address Organization Details Last Updated DateTime 5 180.34 cm 28 kg/m2 70240.0 7 g 96 % 86 /min 16 /min 98.2 [degF] 160/98 mm[Hg] Anyi Palmer [facility] 5 10:43:30 Date Recorded Body height Body mass index (BMI) Body weight Oxygen saturation Heart rate Respiratory rate Body temperature Systolic And Diastolic Provider Name and Address Organization Details Last Updated DateTime 5 180.34 cm 27 kg/m2 85491.1 3 g 97 % 76 /min 18 /min 97.7 [degF] 136/74 mm[Hg] KATIE SALES [facility] 5 09:25:59 Date Recorded Body height Body mass index (BMI) Body weight Oxygen saturation Heart rate Respiratory rate Body temperature Systolic And Diastolic Provider Name and Address Organization Details Last Updated DateTime 5 180.34 cm 26.7 kg/m2 76028.2 4 g 97 % 83 /min 18 /min 97.8 [degF] 130/74 mm[Hg] [facility] 5 16:31:08 Social History Question Answer Notes LastModified by Organizat ion Details LastModified Time Tobacco Smoking Status Current Every Day Smoker Anyi Palmer [facility] 02/26/2024 10:32:41 Are You Blind Or [...] Recorded Time Tdap 2 completed Not Available [facility] 05/09/2025 16:14:58 COVID-19, mRNA, LNP-S, PF, 100 mcg/0.5mL dose or 50 mcg/0.25mL dose 1 completed Not Available [facility] 05/09/2025 16:14:58 COVID-19, mRNA, LNP-S, PF, 100 mcg/0.5mL dose or 50 mcg/0.25mL dose 1 completed Not Available [facility] 05/09/2025 16:14:58 COVID-19, mRNA, LNP-S, PF, 100 mcg/0.5mL dose or 50 mcg/0.25mL dose 1 completed Not Available [facility] 05/09/2025 16:14:58 COVID-19, mRNA, LNP-S, PF, 100 mcg/0.5mL dose or 50 mcg/0.25mL dose 2 completed Not Available [facility] 05/09/2025 16:14:58 COVID-19, mRNA, LNP-S, bivalent, PF, 50 mcg/0.5 mL or 25mcg/0.25 mL dose 2 completed Not Available [facility] 05/09/2025 16:14:58 Influenza, split virus, trivalent, preservative 2 completed Not Available [facility] 05/09/2025 16:14:58 COVID-19, mRNA, LNP-S, PF, 50 mcg/0.5 mL 4 completed Not Available [facility] 05/09/2025 16:14:58 Past Encounters Encounter ID Performer Location Encounter Start Date Encounter Closed Date Diagnosis/Indication Diagnosis SNOMED-CT Code Diagnosis ICD10 Code Diagnosis IMO Codes Diagnosis Note [id number] AMANDA SHEN [facility] ([facility]) [address] [place] [id number] 02/26/2024 10:21:53 02/26/2024 11:56:01 Acute bacterial bronchitis 920340024 J20.9 Discussed use of antibiotic . Take with food.May use Rodney's nasal inserts and also apply on chest. Push oral fluids. Consider nasal saline rinses and otc decongesta nt.Use tylenol/mo kristal for malone. [id number] TERESO WOO APRN [facility] ([facility]) [address] [place] [address] 11/10/2024 13:13:03 11/13/2024 13:28:56 Sore throat 419339897 J02.9 Pruritic rash 57737538 L 28.2 [id number] Nannette Gorman MD [facility] ([facility]) [address] [place] [id number] 11/19/2024 11:16:23 11/19/2024 13:26:41 Onychomycosis of toenails 783004564 B35.1 Patient does have onychomyco sis of multiple toenails. Discussed treatment with terbinafin e and the patient would like to proceed. Adult [facility] th examination 982410889 Z00.00 We will obtain routine lab work. Discussed regular exercise. Discussed alcohol use and recommende d safe limits. Encouraged well-deb el diet. Hyperlipid emia screening 482318604 Z13.220 Screening for malignant neoplasm of colon 036648193 Z12.11 Discussed colon cancer cancer screening options and the patient was agreeable to proceed with Cologuard. [id number] Nannette Gorman MD [facility] ([facility]) [address] [place] [id number] 03/13/2025 10:36:25 03/17/2025 08:04:00 Insect bite of lower limb 526344309 S90.861A W57.XXXA 1247646 Likely reaction to insect bite. Start topical steroid cream. Follow-up if symptoms do not improve [id number] Andrei Larios MD [facility] ([facility]) [address] [place] [id number] 04/14/2025 09:05:36 04/14/2025 10:03:17 Vasectomy 25233632 Z30.09 [id number] Andrei Larios MD [facility] ([facility]) [address] [place] [phone] 05/09/2025 16:13:06 06/02/2025 09:35:06 Contraception status 581185394 Z30.2 [id number] Andrei Larios MD [facility] ([facility]) [address] [place] [id number] 08/20/2025 12:58:32 08/21/2025 11:12:37 History of vasectomy 723209903 Z98.52 152223 Health Concerns Section Related Observation LastModified by Organization Detai ls LastModified Time None Recorded Concern Status LastModified by Organization Details LastModified Time None Recorded Advance Directives Directive None Recorded Payers Insurance Date Sequence Insurance Name Policy Number Policy Licona Covered Member ID Licona Member ID Guarantor Name 03/13/2025 1 MEDICA - IFB (PPO) [id number] Juan Daniel Bailey [id number] Juan Daniel Bailey 04/14/2025 1 [facility] (MEDICAID REPLACEMENT - HMO) INDU Bailey [id number] Juan Daniel Bailey 03/13/2025 1 *SELF PAY* Jeanne Samsondle Notes Date Note Type Note Provider Name and Address Organization Details Recorded Time 11/19/2024 text/html Annual WellnessReported by PatientSocial/Behavior al HistoryFor additional lifestyle factors, patient reportstobacco useandalcohol misuse. For diet and nutrition, patient reportshealthy diet. For fracture risk, patient reportsno history of fractures.Mental Status:For depression risk, patient reportshistory of depression. This is a 54-year-old gentleman that comes in today to establish care. The patient is wanting general checkup and to discuss preventative care and toenail issues. Patient denies any significant medical problems. Patient has not had lab work done in many years. Patient states that he drinks moderate amount of alcohol which consist mostly of red wine with meals. Patient reports concerns of toenail fungus and would like it to be treated as it is bothersome and difficult for him to manage footcare. Patient has not had any kind of colon cancer screening. Nannette Gorman MD [address] [place] [address], [phone], [facility] 11/24/2024 13:14:07 03/13/2025 text/html Skin LesionRepor judy by PatientROS as noted in the HPI walk in patientpatient is here today for a spot on the top of his right foot, spot is swollen, and itchy. Patient said that he noticed it in the middle of the night Nannette Gorman MD [address] [place] [address], [phone], [facility], Mario 03/14/2025 21:37:37 04/14/2025 text/html vasectomy consult Andrei Larios MD [address] [place] [address], [phone], [facility], Mario 04/14/2025 10:01:24 05/09/2025 text/html Patient is here for a vasectomy procedure Andrei Larios MD [address] [place] [address], [phone], [facility], Mario 05/31/2025 12:10:05
--- OUTSIDE RECORDS SUMMARY | 2025-09-12 14:53 | XMS_ITS | Patient Health Record ---
Author Organization [facility] Address [address] [place] [address] Care Team Providers Care Accountant Helper Name Role Phone Reese Lowe MD Primary Care Provider Luis lopez GaloRae [phone] Allergies No Known Allergies Reason For Referral No Information Medications Medication SIG (Take, Route, Frequency, Duration) Notes Start Date End Date Status diazePAM 10 MG Tablet as directed Orally once; Duration: 1 day Please take upon arrival of appt and please come with escort vehicle driver 01/24/2023 Active Sildenafil Citrate A ctive Ibuprofen Active Social History Tobacco Use: Social History Observation Description Date Details (start date - stop date) Current Smoker NA - NA Social History Tobacco Use: Social Info Question Answer Notes xTobacco Use/Smoking Are you a current smoker Problems Problem Type SNOMED Code ICD Code Onset Dates Problem Status W/U Status Risk Notes Problem Nocturia (344160580) Nocturia (R35.1) Active confirmed Problem Contraception care education (582085563) Vasectomy evaluation (Z30.09) Active confirmed Problem History of vasectomy (539428105) Status post vasectomy (Z98.52) Active confirmed Plan Of Treatment Pending Test Test Name Order Date Semen Count Post Vasectomy 78359 [id number] Insurance Providers Payer Name Payer Address Payer Phone Subscriber Number Group Number Insured Name Patient Relationship to Insured Coverage Start Date Coverage End Date [facility] [employer] [address] [place] [address] [id number] Reese Bailey Self - patient is the insured Medical (General) History Medical History History ICD Code hypertension back trouble
--- OUTSIDE RECORDS SUMMARY | 2025-09-12 14:53 | XMS_ITS | Patient Health Record ---
Author Organization [facility] Address [address] [place] [address] Care Team Providers Care Envelope Stuffer Name Role Phone Reese Lowe MD Primary Care Provider VanessaCATRACHO Dominique Unavailable [phone] Allergies No Known Allergies Reason For Referral No Information Medications Medication SIG (Take, Route, Frequency, Duration) Notes Start Date End Date Status Ibuprofen *Pick strength-form from [employer] for eRX* Active diazePAM 10 MG as directed Orally once; Duration: 1 day Please take upon arrival of appt and please come with national flatbed truck driver 01/24/2023 Active Sildenafil Citrate *Pick strength-form from [employer] for [employer]* Active Problems Problem Type SNOMED Code ICD Code Onset Dates Problem Status W/U Status Risk Notes Problem Nocturia (409541449) Nocturia (R35.1) Active confirmed Problem History of vasectomy (709830716) Status post vasectomy (Z98.52) Active confirmed Problem Contraception care education (626072607) Vasectomy evaluation (Z30.09) Active confirmed Plan Of Treatment Future Test Test Name Order Date Semen Count Post Vasectomy 17540 023 Insurance Providers Payer Name Payer Address Payer Phone Subscriber Number Group Number Insured Name Patient Relationship to Insured Coverage Start Date Coverage End Date [facility] COMM[employer] PLAN [address] [place], [place] [id number] Reese Bailey Self - patient is the insured Medical (General) History Medical History History ICD Code hypertension back trouble
--- NOTE | 2025-09-12 15:09 | ED_ITS ---
HPI - Anxiety General: Chief Complaint: Anxiety Stated Complaint: PANIC ATTACK Time Seen by Provider: 09/12/25 14:56 Source: patient Mode of arrival: EMS Limitations: no limitations History of Present Illness: Patient is a nice 51-year-old male who presents to ED today with a complaint of anxiety/panic attack. He arrives with a friend/family member who states they were at a restaurant eating when he began having significant anxiety and felt like he was having a panic attack thus called EMS. Patient does have anxiety and had had panic attacks previously. She states patient has been going through a lot regarding his ex- who suffers from bipolar disorder and is incredibly manipulative and narcissistic. He states they reside together as they have an 8 and 11-year-old son. He states he normally deals with his anxiety with meditation, diet and exercise. No pain anywhere upon arrival. MD complaint: anxiety Onset (ago): hour(s) Symptoms: sense of impending doom and other (anxiety, sweating) Severity: severe History of similar episodes: Yes Provoking factors: emotional stress Exacerbating factors: thinking about event Associated symptoms: Deny chest pain, chills, confusion, fever(s), headache(s), malaise, nausea, palpitations, syncope or vomiting Related Data Allergies Allergy/AdvReac Type Severity Reaction Status Date / Time No Known Allergies Allergy Verified 04/14/24 17:54 Review of Systems Const: Denies: fever(s), chills, body aches, fatigue or malaise Card: Denies: chest pain, palpitations, edema, syncope or pre-syncope Resp: Denies: dyspnea GI: Denies: abdominal pain, nausea or vomiting Neuro: Denies: headache(s), numbness in extremities, weakness in extremities, sensory changes, dizziness, confusion, behavioral changes or seizure-like activity Psych: Reports: anxiety; Denies: visual hallucinations, auditory hallucinations, suicidal ideation or homicidal ideation PFS ED PFSH: Medical History Alcohol abuse Anxiety Depression Surgical History No significant past surgical history Social History Smoking and tobacco/nicotine status: current every day tobacco/nicotine user apolinar le Packs smoked per day: 1 Years cigarettes smoked: 30 Alcohol intake: current Alcohol intake frequency: 3 or more drinks per day Alcohol type: wine Substance/Drug Use: current Substance/Drug use frequency: daily Physical Exam Const: COMMON NORMALS: average body habitus, patient oriented x3, healthy appearing, alert and well nourished GENERAL APPEARANCE: cooperative and anxious (severe) OTHER: Patient states he cannot even think about the current conflict with his ex- as it causes additional anxiety/hyperventilation HENMT: COMMON NORMALS: normocephalic and atraumatic HEAD & SCALP: normal to inspection, normocephalic and atraumatic Neck/C-Spine: COMMON NORMALS: no JVD Resp: COMMON NORMALS: normal respiratory effort and clear to auscultation bilaterally AUSCULTATION: clear to auscultation bilaterally Cardio: COMMON NORMALS: no JVD, regular rate and regular rhythm RATE: regular rate RHYTHM: regular rhythm Neuro: LUISA COMA SCALE: document GCS findings [place] coma scale eye opening: Spontaneous [place] coma scale verbal response: Orientated [place] coma scale motor response: Obey commands Luisa coma scale total score: 15 COMMON NORMALS: patient oriented x3, CN's II-XII intact bilaterally, moves all extremities, no focal motor deficits, no sensory deficits noted and gait normal SENSORIUM/ORIENTATION: Yes alert Course Vital Signs: Vital signs: Vital Signs Temperature 98.1 F 09/12/25 14:49 Pulse Rate 86 09/12/25 16:05 Respiratory Rate 20 H 09/12/25 14:49 Blood Pressure 134/89 09/12/25 16:05 Pulse Oximetry 97 09/12/25 16:05 Oxygen Delivery Me thod Room Air 09/12/25 16:05 MDM - Anxiety Medical Decision Making Patient feels significantly improved after 2 mg IM Ativan. He feels comfortable going home thus we will allow discharge. He states his ex- is going to stay with somebody else for a few days. Return to ED precautions discussed. Differential Diagnosis Likely hyperventilation, panic disorder and acute anxiety Medical Records I reviewed the patient's medical records. 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
[2025-09-12] MEDS: LORazepam 2 mg/mL INJ 1 mL IM (15:15)
[2025-09-12 16:05] VITALS: BP 134/89; PULSE 86; O2SAT 97
== END 2025-09-12 16:53 | disposition home or self-care (01) ==
PROVIDERS: Emergency Provider Physician Assistant; PCP Family Medicine
DX: F41.0 Panic disorder [episodic paroxysmal anxiety] (principal); F17.210 Nicotine dependence, cigarettes, uncomplicated
CPT/HCPCS: 96372; 99284; J2060